=== PATIENT | male | born 1975 | race Caucasian/White ===

== ENCOUNTER → 2019-10-31 | Day surgery (SDC) | payer OTHER ==
[2019-10-26 14:17] LABS: ANION GAP 13.2 mmol/L (8-16); BLOOD UREA NITROGEN 16 mg/dL (7-26); BUN/CREATININE RATIO 14 (6-25); CALCIUM 9.6 mg/dL (8.4-10.2); CARBON DIOXIDE 27 mmol/L (22-29); CHLORIDE 102 mmol/L (98-107); CREATININE, SERUM 1.18 mg/dL (0.72-1.25); EST GLOMERULAR FILTRATION RATE > 60 ML/MIN (60-); GLUCOSE 107 mg/dL (74-118); POTASSIUM 4.2 mmol/L (3.5-5.1); SODIUM 138 mmol/L (136-145)
--- NOTE | 2019-10-26 14:46 | Diagnostic Imaging Report ---
Exam: KUB - 2 views Indication: Preoperative Comparison: None Findings: 5 mm calcific density just lateral to the left transverse process of L3 may represent a proximal left ureteral calculus. No additional radiographically apparent urinary calculi. Nonobstructive bowel gas pattern. No free air. No acute osseous injury. Impression: 5 mm calcific density lateral to the left transverse process of L3 may represent a proximal left ureteral calculus. Signed by: Danish Patrick MD on 10/26/2019 2:43 PM
[~2019-10-31] MED LIST: ATORVASTATIN CA40 MG PO; CEFTRIAXONE SOD 1 GM/NS 50 ML 50 ML IV ONE; DEXAMETHASONE SOD PHOS INJ 4 MG/ML VIAL ONE; FENTANYL CITRATE/PF 100MCG/2 ML INJ ONE; IOPAMIDOL 300MG/ML 50ML INFUS..BTL IV ONE; LIDOCAINE HCL 2% LOCAL INJ 5 ML SDV VIAL INJ ONE; METFORMIN HCL500 MG PO; MIDAZOLAM HCL 2 MG/2 ML VIAL ONE; ONDANSETRON HCL INJ 2MG/ML 2ML 2 MG/ML VIAL ONE; PHENTERMINE H37.5 MG PO; PROPOFOL IV EMULSION 10 MG/ML 20 ML VIAL ONE; SEVOFLURANE INHAL SOLN 250 ML PEN BTL ONE; ULTRAM 50MG50 MG PO
--- OUTSIDE RECORDS SUMMARY | 2019-10-31 05:34 | XMS REPORT ---
Author Author [facility] t [facility] Address [address] [place] [address] Phone Unavailable Care Team Providers Care Car Sales Consultant Name Role Phone Alyssa KIRBY, Adeel Piña PCP [phone] QI GALLO Attphys Unavailable Frandy RANGE EXAMINER-C, Otis Masters Attphys Adeel Shah MD Attphys [phone] Payers Payer Name Policy Type Policy Number Effective Date Expiration Date Buffy JASMINE [facility] [id number] xxxxxxxxxx 2017 00:00:00 Jayson Nunes Problems Condition Name Condition Details Condition Category Status Onset Date Resolution Date Last Treatment Date Treating Clinician Comments Source Syncope Syncope Disease Active 2019-02-19 00:00:00 Jayson Nunes Generalized abdominal pain Generalized abdominal pain Disease Active 2019-02-19 00:00:[address] Transaminitis Transaminitis Disease Active 2019-02-19 00:00:00 Jayson Nunes Non-intractable vomiting with nausea Non-intractable vomitin g with nausea Disease Active 2019-02-19 00:00:00 Jayson Nunes Chest pain Chest pain Disease Active 2018-08-13 00:00:00 Jayson Nunes Small bowel obstruction Small bowel obstruction Disease Active 2018-06-11 00:00:[address] Morbid obesity with BMI of 40.0-44.9, adult Morbid obe sity with BMI of 40.0- 44.9, adult Disease Active 2018-06-11 00:00:00 Jayson Nunes Gastroenteritis Gastroenteritis Disease Active 2018-06-09 00:00:00 Jayson Nunes Partial small bowel obstruction Partial small bowel obstruction Dis ease Active 2018-06-07 00:00:00 Jayson Nunes Allergies, Adverse Reactions, Alerts Allergy Name Allergy Type Status Severity Reaction(s) Onset Date Inacti ve Date Treating Clinician Comments Source No Known Allergies DA Active U 2019-06-27 00:00:00 [facility] Social History Social Habit Start Date Stop Date Quantity Comments Source History SDOH Alcohol Std Drinks Jayson Nunes History SDOH Alcohol Binge Jayson Nunes Sex Assigned At [facility] Alcohol intake 2019-02-19 00:00:00 2019-02-19 00:00:00 Current non-drinker of alcohol (finding) Jayson Nunes History SDOH Alcohol Frequency 2018-06-07 00:00:00 2018-06-07 00:00:0 0 1 Jayson Nunes Smoking Status Start Date Stop Date Source Never smoker Jayson Matute t Medications Ordered Medication Name Filled Medication Name Start Date Stop Da te Current Medication? Ordering Clinician Indication Dosage Frequency Signature (SIG) Comments Components Source pantoprazole (PROTONIX) 40 MG EC tablet 00:00:00 2019-03-25 04:59:00 No 40mg QD Take 1 tablet (40 mg total) by mouth daily for 30 days. Jayson Nunes metFORMIN (GLUCOPHAGE) 850 mg tablet 2019-02-21 17:45: 30 2019-02-21 00:00:00 No 850mg Q.5D Take 850 mg by mouth 2 (two) times a day with meals. Jayson Nunes simethicone (GAS-X ORAL) 2019-02-21 17:45:27 Yes 1{tbl} Q24H Take 1 tablet by mouth daily as needed. Jayson Nunes promethazine (PHENERGAN) 25 MG tablet 2019-02-20 02:37 :07 2019-02-19 00:00:00 No 25mg Q6H Take 25 mg by m outh every 6 (six) hours as needed for nausea or vomiting. Jayson Nunes ondansetron ODT (ZOFRAN-ODT) 4 MG disintegrating tablet 2019-02-20 02:37:01 2019-02-19 00:00:00 No 4mg Q6H Take 4 mg by mouth every 6 (six) hours as needed for nausea or vomiting. Jayson Rice ethodist ibuprofen (ADVIL,MOTRIN) 200 MG tablet 2019-02-11 0 02:36:42 2019-02-19 00:00:00 No 200mg Q6H Take 200 mg by mouth every 6 (six) hours as needed for mild pain. Jayson Nunes guaiFENesin (MUCINEX) 600 mg tablet extended release 12hr 2019-02-20 02:36:21 2019-02-19 00:00:00 No 600mg Q.5D Take 600 mg by mouth 2 (two) times a day as needed. Jayson Nunes fexofenadine (DAMION) 60 MG tablet 2019-02-20 02:36:1 4 2019-02-19 00:00:00 No 60mg Q24H Take 60 mg by mouth daily as needed. Jayson Nunes NON FORMULARY 2019-02-20 00:21:18 2019-02-19 00:00:00 No 1{application} Apply 1 application topically take as directed. Estrogen cream Jayson Nunes NON FORMULARY 2019-02-20 00:21:09 2019-02-19 00:00:00 No 1{application} Apply 1 application topically take as directed. Compounded testosterone cream Jayson Nunes diphenoxylate-atropine (LOMOTIL) 2.5-0.025 mg per tablet 2019-02-20 00:20:14 2019-02-19 00:00:00 No 1{tbl} Q.25D Take 1 tablet by mouth 4 (four) times a day as needed for diarrhea. Jayson alexandra acetaminophen (TYLENOL) 500 MG tablet 2019-02-20 00:19 :39 2019-02-19 00:00:00 No 500mg Q6H Take 500 mg by mouth every 6 (six) hours as needed for mild pain. Jayson Nunes cyclobenzaprine (FLEXERIL) 10 mg tablet 00:00:00 2019-02-19 00:00:00 No 10mg Q.5D Take 1 tablet (10 mg total) by mouth 2 (two) times a day as needed for muscle spasms for up to 30 doses. Jayson Nunes blood-glucose meter, drum-type (ACCU-CHEK COMPACT PLUS CARE) kit 2018-06-13 00:00:00 2019-02-19 00:00:00 No Test daily before all meals/snacks and once before bedtime. Jayson Nunes ACCU-CHEK COMPACT TEST strip 2018-06-13 00:00:00 2019-02-19 00:0 0:00 No Test daily before all meals/snacks and once before bedtime. Jayson Nunes lancing device with lancets (ACCU-CHEK MULTICLIX LANCET) kit 2018-06-13 00:00:00 2019-02-19 00:00:00 No Test daily before all meals/snacks and once before bedtime. Jayson Nuens alcohol swabs pads, medicated 2018-06-13 00:00:00 2019-02-19 00: 00:00 No Test daily before all meals/snacks and once before bed time. Jayson Nunes Immunizations Ordered Immunization Name Filled Immunization Name Date Status Comments Source FLUCELVAX QUAD PF 2019-02-19 00:00:00 Completed Jayson Nunes Vital Signs Vital Name Observation Time Observation Value Comments Source Systolic blood pressure 2019-02-21 16:10:51 116 mm[Hg] Jayson Nunes Diastolic blood pressure 2019-02-21 16:10:51 67 mm[Hg] Jayson Nunes Heart rate 2019-02-21 16:10:51 58 /min Jayson Nunes Body temperature 2019-02-21 16:10:51 36.39 Makeda Lois Nunes Respiratory rate 2019-02-21 16:10:51 16 /min Lois Nunes Oxygen saturation in Arterial blood by Pulse oximetry 02-21 16:10:51 100 /min Jayson Nunes Body height 2019-02-19 20:57:00 185.4 cm Jayson Nunes Body weight 2019-02-19 20:57:00 154.223 kg Jayson Nunes BMI 2019-02-19 20:57:00 44.86 kg/m2 Jayson Nunes Procedures Procedure Date / Time Performed Performing Clinician [facility] e COMPREHENSIVE METABOLIC PANEL 2019-02-21 10:30:00 Ricardo Shah [facility] COMPLETE BLD COUNT W/AUTO DIFF 2019-02-21 10:30:00 Jaky azael Александрmariorina Adeel Tyler [facility] HEPATIC FUNCTION PANEL 2019-02-21 10:30:00 Joanne Beck tracy [facility] ESTIMATED GFR 2019-02-21 10:30:00 Ayana Shah [facility] MRI CHOLANGIOGRAM W WO CONTRAST 2019-02-20 21:35:05 Asad Chisholm GODFREY-WEEMS VIRUS ANTIBODY TEST 2019-02-20 13:33:00 Deep Chisholm CYTOMEG IGG/IGM 2019-02-20 13:33:00 Deep Chisholm n Christian WHITNEY 2019-02-20 13:33:00 Deep Chisholm Christian ANTI SMOOTH MUSCLE AB SCREEN 2019-02-20 13:33:00 Tani Chisholm Christian TOTAL IRON BINDING CAPACITY 2019-02-20 13:33:00 Deep Chisholm Christian FERRITIN LEVEL 2019-02-20 13:33:00 Deep Chisholm Christian BILIRUBIN DIRECT 2019-02-20 13:33:00 Deep Chisholm on Christian CERULOPLASMIN LEVEL 2019-02-20 13:33:00 Deep Chisholm uston Christian ALPHA-1 ANTITRYPSIN LEVEL 2019-02-20 13:33:00 Deep Chisholm Christian ANTI SMOOTH MUSCLE AB TITER 2019-02-20 13:33:00 Deep Chisholm Christian TROPONIN 2019-02-20 09:59:00 Ayana Shah [facility] HC COMPLETE BLD COUNT W/AUTO DIFF 2019-02-20 09:59:00 Veronikayazan Ayana addison [facility] COMPREHENSIVE METABOLIC PANEL 2019-02-20 09:59:00 Ricardo hSah Christian ESTIMATED GFR 2019-02-20 09:59:00 Guerrero Wise [facility] HEMOGLOBIN A1C 2019-02-20 09:59:00 YerramadhAyana paizjeremy Nunes HEPATITIS ACUTE PANEL 2019-02-20 09:59:00 Guerrero Wise ECG 12-LEAD 2019-02-20 09:41:55 Ayana Shah Adeel Nunes ECG 12-LEAD 2019-02-20 05:31:56 Ayana Shah Jayson Nunes ECG ED PRELIMINARY INTERPRETATION 2019-02-20 05:28:54 David Wise TROPONIN 2019-02-20 04:13:00 Ayana Shahjeremy Nuens TROPONIN 2019-02-20 00:50:00 DennismarioAyana paiz Adeel Nunes URINE CULTURE 2019-02-20 00:03:00 Guerrero Wise URINALYSIS SCREEN AND MICROSCOPY, WITH REFLEX TO CULTURE 201 02-19-10 00:03:00 Guerrero Wise US GALLBLADDER 2019-02-19 23:37:[address] ABDOMEN PELVIS W CONTRAST 2019-02-19 23:12:[address] HEAD WO CONTRAST 2019-02-19 23:10:59 Guerrero Wise XR CHEST 2 VW 2019-02-19 21:46:39 Guerrero Wise ECG 12-LEAD 2019-02-19 21:29:40 Guerrero Wise HC COMPLETE BLD COUNT W/AUTO DIFF 2019-02-19 21:20:00 David Wise COMPREHENSIVE METABOLIC PANEL 2019-02-19 21:20:00 Guerrero Wise LIPASE LEVEL 2019-02-19 21:20:00 Guerrero Wise CREATINE KINASE, TOTAL (CPK) 2019-02-19 21:20:00 Guerrero Wise TROPONIN 2019-02-19 21:20:00 AlyssaAyana Adeel Nunes B NATRIURETIC PEPTIDE 2019-02-19 21:20:00 Guerrero Wise PROTHROMBIN TIME WITH INR 2019-02-19 21:20:00 Guerrero Wise Jean-Claude laguna Jayson Nunes PARTIAL THROMBOPLASTIN TIME (PTT) 2019-02-19 21:20:00 David Wise MAGNESIUM LEVEL 2019-02-19 21:20:00 Guerrero Wise ESTIMATED GFR 2019-02-19 21:20:00 Guerrero Wise Plan of Care Planned Activity Planned Date Details Comments Source Future Scheduled Test 2020-01-12 00:00:00 INFLUENZA VACCINE [code = INFLUENZA VACCINE] Jayson Nunes Results Test Description Test Time Test Comments Results Result Comments Source ABDOMEN-1VIEW (KUB) 2019-10-26 14:39:00 [place] [address] Patient Name: GUERRERO CABRERA MR #: [id number] : 1975 Age/Sex: 44/M Req #: [id number] Adm Physician: Ordered by: QI GALLO MD Report #: [id number] Location: OR Room/Bed: Procedure: [id number] DX/ABDOMEN-1VIEW (KUB) Exam Date: 10/26/19 Exam Time: 1350 REPORT STATUS: Signed Exam: KUB - 2 views Indication: Preoperative Comparison: None Findings: 5 mm calcific density just lateral to the left transverse process of L3 may represent a proximal left ureteral calculus. No additional radiographically apparent urinary calculi. Nonobstructive bowel gas pattern. No free air. No acute osseous injury. Impression: 5 mm calcific density lateral to the left transverse process of L3 may represent a proximal left ureteral calculus. Signed by: Jeni John MD on 10/26/2019 2:43 PM Dictated By: JENI JOHN MD 43 Transcribed By: BILL on 10/26/191442 COPY TO: QI GALLO MD GLUBED 2019-06-29 16:23:00 Test Item GLUBED (test code = GLUBED) 88 MG/DL 70-110 N Performed by certified bulk station operator at [facility] [id number] 13:47:00* Test Item Value Reference Range Interpretation Comments GLUBED (test code = GLUBED) 83 MG/DL 70-110 N Performed by certified bulk station operator at [facility] Anti smooth muscle Ab [id number] 19:16:52* Test Item Value Reference Range Interpretation Comments Anti smooth muscle Ab titer (test code = 327) 1:40 Not-Dete cted A Lab Interpretation (test code = 52210-7) Abnormal [facility] MethodistAnti smooth muscle Ab [id number] 19:13:15* Test Item Value Reference Range Interpretation Comments Anti smooth muscle Ab screen (test code = 262) Detected Not-Det ected A Lab Interpretation (test code = 38722-5) Abnormal [facility] MethodistCytomeg IgG/[id number] 08:27:32* Test Item Value Reference Range Interpretation Comments Cytomegalovirus Ab, IgM (test code = 9585097) Negative Negative Cytomegalovirus Ab, IgG (test code = 24010-5) Negative Negative Negative; No CMV IgG antibodies were detected. [facility] [id number] 20:21:30* Test Item Value Reference Range Interpretation Comments WHITNEY screen (test code = 550) Negative Negative [facility] MethodistComprehensive metabolic [id number] 13:37:43* Test Item Value Reference Range Interpretation Comments Sodium (test code = 2951-2) 142 135- 148 mEq/L Potassium (test code = 2823-3) 4.7 3.5- 5.0 mEq/L smaple slightly hemolyzed, verified new sample repeat 4.53 Chloride (test code = 5-0) 104 98- 112 mEq/L CO2 (test code = 2027-9) 29 24- 31 mEq/L Anion gap (test code = 32907-2) 9@ANIO 7- 15 mEq/L BUN (test code = 3094-0) 11 mg/dL 6-20 Creatinine (test code = 2160-0) 0.80 mg/dL 0.7-1.2 Glucose (test code = 2345-7) 114 mg/dL 65-99 H Calcium (test code = 26826-2) 9.4 mg/dL 8.3-10.2 Protein (test code = 2885-2) 6.8 g/dL 6.3-8.3 4.6-7.0 g/dL1 week 4.4-7.6 g/dL7 months-1year 5.1-7.3 g/dL1-2 years 5.6-7.5 g/dL>3 years 6.0-8.0 g/gO47-700 6.3-8.3 g/dL Albumin (test code = 1751-7) 3.7 g/dL 3.5-5 A/G ratio (test code = 1759-0) 1.2 0.7-3.8 Alkaline phosphatase (test code = 6768-6) 103 U/L 40-129 smaple slightly hemolyzed, verified new sample [id number] AST (test code = 1920-8) 78 U/L 10-50 H sma ple slightly hemolyzed, verified new sample repeat 69 ALT (test code = 1742-6) 257 U/L 5-50 H sma ple slightly hemolyzed, verified new sample Total bilirubin (test code = 1974-07) 0.9 mg/dL 0-1.2 Lab Interpretation (test code = 72814-4) Abnormal [facility] MethodistHepatic function [id number] 13:37:43* Test Item Value Reference Range Interpretation Comments Albumin (test code = 175-7) 3.7 g/dL 3.5-5 Total bilirubin (test code = 1974-07) 0.9 mg/dL 0-1.2 Bilirubin direct (test code = 1967-12) 0.2 mg/dL 0-0.3 Alkaline phosphatase (test code = 6768-6) 103 U/L 40-129 smaple slightly hemolyzed, verified new sample Protein (test code = 2885-2) 6.8 g/dL 6.3-8.3 4.6-7.0 g/dL1 week 4.4-7.6 g/dL7 months-1year 5.1-7.3 g/dL1-2 years 5.6-7.5 g/dL>3 years 6.0-8.0 g/wS76-340 6.3-8.3 g/dL ALT (test code = 1742-6) 257 U/L 5-50 H sma ple slightly hemolyzed, verified new sample icxvya754 AST (test code = 1920-8) 78 U/L 10-50 H sma ple slightly hemolyzed, verified new sample repeat 69 Lab Interpretation (test code = 34019-8) Abnormal [facility] MethodistEstimated [id number] 11:21:48* Test Item Value Reference Range Interpretation Comments Estimated GFR (test code = 5488) >=90 mL/min/1.73 m2 Catergory Units InterpretationG1 >=90 Normal or highG2 60-89 Mildly fhuapzxmxW8p 45-59 Mildly to moderately qzvevzumuH9v 30-44 Moderately to severely decreasedG4 15-29 Severely decreasedG5 <15 Kidney failureThe eGFR was calculated using the Chronic Kidney Disease Epidemiology Collaboration (CKD-EPI) equation. Interpretation is based on recommendations of the National Kidney Foundation-Kidney Disease Outcomes Quality Initiative (NKF-KDOQI) published in 2014. [facility] MethodistCBC with platelet and hkotawjmyibc2657-07-36 10:59:26* Test Item Value Reference Range Interpretation Comments WBC (test code = 16651-3) 5.01 4.50- 11.00 k/uL RBC (test code = 79495-1) 4.91 m/uL 4.4-6 HGB (test code = 718-7) 14.3 g/dL 14-18 HCT (test code = 4544-3) 46.2 % 41-51 MCV (test code = 787-2) 94.1 fL 82-100 MCH (test code = 785-6) 29.1 pg 27-34 MCHC (test code = 786-4) 31.0 g/dL 31-37 RDW - SD (test code = 10964-8) 46.2 fL 37-55 MPV (test code = 77316-2) 9.4 fL 8.8-13.2 Platelet count (test code = 13825-2) 209 150- 400 k/uL Nucleated RBC (test code = 27562-5) 0.00 /100 WBC Neutrophils (test code = 08469-6) 51.9 % 39-69 Lymphocytes (test code = 60502-2) 33.5 % 25-45 Monocytes (test code = 99171-8) 10.2 % 0-10 H Eosinophils (test code = 01218-5) 3.2 % 0-5 Basophils (test code = 25744-4) 0.8 % 0-1 Lab Interpretation (test code = 36729-4) Abnormal [facility] centerMRI CHOLANGIOGRAM W WO [id number] 22:37:28Hm Interface, Radiology Results 02/20/2019 5:40 PM CDTEXAMINATION: MRI CHOLANGIOGRAM W WO CONTRASTCLINICAL HISTORY: elevated liver tests biliary sludgeTECHNIQUE: Multiplanar multisequence MR images of the abdomen were obtaine d without and with IV Gadavist. MRCP images were obtained with 3-D reconstructi ons on the acquisition scanner under concurrent supervision.COMPARISON: CT abdo men and pelvis 02/19/2019FINDINGS:1.There is sludge in the gallbladder. No formed stones are visualized. There are no signs of cholecystitis.2.MRCP: No biliary st ricture, choledocholithiasis, or intrahepatic or extra hepatic biliary dilation. The common duct is 3.5 mm diameter. The pancreatic duct is normal.3.The liver, spleen, pancreas, and adrenals are normal.4.There are several sub-5 mm right yulisa al cysts, and there is a 2.2 cm simple left lower pole renal cyst. The kidneys a re otherwise normal without hydronephrosis.5.The stomach and imaged bowel loops are within normal limits.6.There is no lymphadenopathy or ascites.7.The portal, splenic, superior mesenteric veins are patent. The aorta is normal.8.No signific ant marrow abnormality is seen.IMPRESSION: 1.Gallbladder sludge without visible gallstone or bile duct stone or signs of cholecystitis.2.Benign renal cysts.[facility] [place][id number] MethodistEpstein-Weems virus antibody [id number] 20:33:25 * Test Item Value Reference Range Interpretation Comments EBV Ab to viral capsid Ag, IgG (test code = 18974-3) Positive N egative A EBV Ab to viral capsid Ag, IgM (test code = 43047-3) Negative N egative EBV Ab to nuclear Ag, IgG (test code = 7883-2) Positive Negativ e A EBV Ab to early (D) Ag, IgG (test code = 14295-8) Negative Nega tive Godfrey-Weems virus antibody interpretation (test code = 5466) SEE C OMMENT Infection Status: Results may suggest past EBV infection. Lab Interpretation (test code = 33948-6) Abnormal [facility] MethodistFerritin [id number] 19:48:05* Test Item Value Reference Range Interpretation Comments Ferritin level (test code = 2276-4) 351 ng/mL 30-400 [facility] MethodistCeruloplasmin [id number] 19:43:54* Test Item Value Reference Range Interpretation Comments Ceruloplasmin (test code = 2064-4) 24 mg/dL 15-30 [facility] MethodistAlpha-1 antitrypsin [id number] 19:43:43* Test Item Value Reference Range Interpretation Comments Alpha-1 antitrypsin (test code = 6771-0) 145 mg/dL 90-200 [facility] iron binding wywkaodt5249-05-13 13:57:28* Test Item Value Reference Range Interpretation Comments Iron level (test code = 2498-4) 190 ug/dL 59-158 H Iron binding capacity (test code = 2500-7) 292 ug/dL 200-400 % Saturation (test code = 2502-3) 65.1 % 20-40 H Lab Interpretation (test code = 25882-5) Abnormal [facility] MethodistBilirubin agaxgs1464-03-08 13:57:27* Test Item Value Reference Range Interpretation Comments Bilirubin direct (test code = 1968-7) 1.8 mg/dL 0-0.3 H Lab Interpretation (test code = 72507-4) Abnormal [place] MethodistHepatitis acute [id number] 12:02:24* Test Item Value Reference Range Interpretation Comments Hepatitis A IgM (test code = 11455-1) Nonreactive Non-reactive Hepatitis B core IgM (test code = 06402-9) Nonreactive Non-reactiv e Hepatitis B surface Ag (test code = 5195-3) Nonreactive Non-reacti ve Hepatitis C Ab (test code = 60861-0) Nonreactive Non-reactive [facility] MethodistECG 12 [id number] 11:59:20* Test Item Value Reference Range Interpretation Comments Ventricular rate (test code = 253) 73 Atrial rate (test code = 255) 73 [place] interval (test code = 266) 164 QRSD interval (test code = 260) 80 QT interval (test code = 264) 378 QTC interval (test code = 265) 416 P axis 1 (test code = 267) 43 QRS axis 1 (test code = 268) 15 T wave axis (test code = 270) 42 EKG impression (test code = 273) Normal sinus rhythm-N ormal ECG-In automated comparison with ECG of 20-FEB-2019 00:31,-No significant change was found- Tyler ZalblhhzaUixkbifw8162-22-66 11:25:17* Test Item Value Reference Range Interpretation Comments Troponin (test code = 98976-5) <0.006 0-0.04 [facility] changed methodology effective: 10/17/2018 at 10:00 amThe new method has a 99th percentile cutoff of 0.040 ng/mL Tyler MethodistHemoglobin [id number] 11:01:56* Test Item Value Reference Range Interpretation Comments Hemoglobin A1C (test code = 20226-8) 6.1 % 4-5.6 H HbA1c cutoffs for diagnosing diabetes:4.0% - 5.6% = normal5.7% - 6.4% = increased risk for diabetes (prediabetes) >=6.5% = diabetes Goals for glycemic control (ADA 2016)< 7.0% Target for non adults with diabetes. More or less stringent targets may be appropriate for individual patients. <7.5% Target for Children and adolescents with type 1 diabetes. Lab Interpretation (test code = 82225-8) Abnormal [place] [place] [facility] Preliminary Interpretation - Not an [id number] 05:28:54Nestor Arita MD 02/21/2019 9:44 [facility] [place] Preliminary Interpretation - Not an OrderPerformed by: Guerrero Wise NP-CAuthorized by: Guerrero Wise NP-C ECG reviewed by ED Physician in the absence of a drying machine tender: yes Interpretation: Interpretation: normal Rate: ECG rate: 72 ECG rate assessment: normal Rhythm: Rhythm: sinus rhythm Ectopy: Ectopy: none QRS: QRS axis: Normal QRS intervals: NormalST segments: ST segments: NormalT waves: T waves: normal Jayson NunesUrine culture 2019-02-20 00:23:40* Test Item Value Reference Range Interpretation Comments Urine culture (test code = 9955243) SEE COMMENT Bacteriuria screen negative. Jayson MethodistUrinalysis screen and microscopy, with reflex to culture 2019-02-20 00:23:38* Test Item Value Reference Range Interpretation Comments Specimen site (test code = 0572497) Clean catch Color, UA (test code = 5778-6) Janina Appearance, UA (test code = 5767-9) Clear Specific gravity, UA (test code = 5811-5) >1.060 1.001-1.035 H pH, UA (test code = 5803-2) 6.0 5.0-8.5 Protein, UA (test code = 30646-6) Negative Negative Glucose, UA (test code = 97197-4) Negative Negative Ketones, UA (test code = 2514-8) Negative Negative Bilirubin, UA (test code = 5770-3) Negative Negative Blood, UA (test code = 5794-3) Negative Negative Nitrite, UA (test code = 5802-4) Negative Negative Urobilinogen, UA (test code = 69484-7) 2.0 <2.0 A Leukocyte esterase, UA (test code = 5799-2) Negative Negative Epithelial cells, UA (test code = 5787-7) Many Few /HPF WBC, UA (test code = 5821-4) 0-5 0- 1 /HPF RBC, UA (test code = 76131-6) 0-5 0- 5 /HPF Bacteria, UA (test code = 51107-4) Few None seen Yeast, UA (test code = 57950-5) None seen Yeast with pseudohyphae, UA (test code = 71523-8) None seen Lab Interpretation (test code = 84898-0) Abnormal Jayson Landers Lebstiiozvt5588-39-27 23:39:27Hm Interface, Radiology Results 02/19/2019 6:42 PM CDTEXAMINATION: US GALLBLADDERCLINICAL HISTORY: 44 years Male upper abdominal painCOMPARISON: N one.FINDINGS:Gallbladder: Minimal intermediate echoes within the gallbladder lik lali reflects sludge. No calculi. The gallbladder wall is not thickened and there is no pericholecystic fluid.CBD: 5 mm, within normal limits.Liver: The liver is diffusely increased in echogenicity.Portal vein: The portal vein demonstrates normal hepatopetal flow. The portal vein measures 1.1 cm.IMPRESSION:1.Gallbladde r sludge. No sonographic evidence of cholelithiasis or cholecystitis.2.Hepatic s teatosis.[facility]-[id number] MethodistCT Head Wo [id number] 23:16:44Hm Interface, Radiology Results Incoming 02/19/2019 6:19 PM CDTEXAMINATION: CT HEAD WO CONTRASTCLINICAL HISTORY: syncopeCOMPARISON: None.TECHNIQUE: Noncon trast head CT performed using radiation dose reduction techniques. Technical fa ctors are evaluated and adjusted to ensure appropriate moderation of exposure. Automated dose management technology is applied to adjust radiation exposure whi le achieving a diagnostic quality image. FINDINGS:No acute intra or extra-axial hemorrhage identified. The miller-white matter differentiation is preserved. The basal ganglia, thalami, midbrain, arya and cervicomedullary junction are unremar kable. No mass, mass effect, or midline shift is seen. Ventricles and sulci are normal in appearance for patient's age. Basal cisterns are patent. Calvarium is intact.The orbital contents are symmetric and normal in appearance. The visuali zed paranasal sinuses are unremarkable. The mastoid air cells and middle ear cav ities are clear. Scalp soft tissues are unremarkable.IMPRESSION:No acute intracr anial abnormality identified.[facility]ITALW-[id number] MethodistCT Abdomen Pelvis W Qxtlznis6268-86-53 23:16:21Hm Interface, Radiology Results 02/19/2019 6:19 PM CDTEXAMINATION: CT ABDOMEN PELVIS W CONTRASTCLINICAL HISTORY: generalized abdominal tendernessCOMPARISON: August 13, 2018TECHNIQUE: Multiple axial CT images of the Abdomen and pelvis were obtained With IV contrast . Sagittal and coronal reconstructions were done. CT imaging was performed with iterative reconstruction technique and/or automated exposure control to reduce radiation dose.FINDINGS:HEPATOBILIARY: No focal hepatic lesions. No biliary ductal dilation..GALLBLADDER: Normal.SPLEEN: No splenomegaly.PANCREAS: No focal masses or ductal dilation.ADRENALS: No adrenal nodules.KIDNEYS: Bilateral calyceal kidney stones measuring up to 4 mm nonobstructing. No hydronephrosis or renal mass. Stable left renal cyst.PERITONEUM/RETROPERITONEUM: No free air or fluid. No lymphadenopathy.ABDOMINAL AORTA/IVC: No aneurysm or dissection.GI TRACT: Visualized portions of the bowel demonstrate no distention or wall thickening. There are no signs of appendicitis. No signs of diverticulitis.PELVIC ORGANS/BLADDER: Unremarkable.BONES AND SOFT TISSUES: No acute abnormality of the bones. Fat-containing umbilical hernia stable.VISU ALIZED LOWER CHEST: No acute abnormality.IMPRESSION:No acute abnormality.STJO-2U [id number] [facility] [id number] 22:03:37* Test Item Value Reference Range Interpretation Comments BNP (test code = 96404-8) 18 pg/mL 0-100 [facility] [id number] 21:48:50* Test Item Value Reference Range Interpretation Comments Lipase (test code = 3040-3) 25 U/L 13-60 [facility] [id number] 21:48:50* Test Item Value Reference Range Interpretation Comments Magnesium (test code = 79709-7) 2.1 mg/dL 1.6-2.6 [facility], total (CPK)2019-02-19 21:48:48* Test Item Value Reference Range Interpretation Comments Creatine kinase (test code = 2157-6) 129 U/L 39-308 [facility] Chest 2 [id number] 21:48:17 Interface, Radiology Results - 02/19/2019 4:51 PM CDTEXAMINATION: XR CHEST 2 VWCLINICAL HISTORY: dizzyCOMPARISON: 08/12/2018IMPRESSION:1.Lungs are mildly hypoinflated but otherwise clear.2.Mediastinal contours and cardiac silhouette are unremarkable.3.No acute osseous abnormality.[id number] [facility] Prothrombin time with [id number] 21:43:21* Test Item Value Reference Range Interpretation Comments Prothrombin time (test code = 5902-2) 12.1 11.5- 14.5 sec INR (test code = 42872-1) 0.9 Th e International Normalized Ratio (INR) is a therapeutic monitoring tool for patients who are stable on oral anticoagulant therapy. An INR of 2.0-3.0 is suggested for deep vein thrombosis/pulmonary embolism. Jayson NunesPartial thromboplastin time, [id number] 21:43:21* Test Item Value Reference Range Interpretation Comments PTT (test code = 01962-2) 25.8 23.0- 36.0 sec PTT therapeutic range for unfractionated heparin is61.0-112.0 seconds which corresponds to Anti-Xa0.3-0.7 U/ml. Jayson Nunes
--- OUTSIDE RECORDS SUMMARY | 2019-10-31 05:34 | XMS REPORT | Clinical Summary ---
Author Author [facility] Organization [facility] Address Unknown Phone Unavailable Care Team Providers Care Textile Worker Name Role Phone Ayana Shah MD PCP [phone] Allergies No Known Allergies Medications End Date Status Medication Sig Dispensed Refills Start Date Active simethicone (GAS-X ORAL) Take 1 tablet 0 by mouth daily as needed. 02/19/2019 Discontinued promethazine (PHENERGAN) Take 25 mg by 0 25 MG tablet mouth every 6 (six) hours as needed for nausea or vomiting. 02/19/2019 Discontinued (Med List Clean up) diphenoxylate-atropine Take 1 tablet 0 (LOMOTIL) 2.5-0.025 mg by mouth 4 per tablet (four) times a day as needed for diarrhea. 02/19/2019 Discontinued ondansetron ODT Take 4 mg by 0 (ZOFRAN-ODT) 4 MG mouth every 6 disintegrating tablet (six) hours as needed for nausea or vomiting. 02/19/2019 Discontinued fexofenadine (DAMION) 60 Take 60 mg by 0 MG tablet mouth daily as needed. 02/19/2019 Discontinued guaiFENesin (MUCINEX) 600 Take 600 mg 0 mg tablet extended by mouth 2 release 12hr (two) times a day as needed. 02/19/2019 Discontinued ibuprofen (ADVIL,MOTRIN) Take 200 mg 0 200 MG tablet by mouth every 6 (six) hours as needed for mild pain. 02/19/2019 Discontinued (Med List Clean up) acetaminophen (TYLENOL) Take 500 mg 0 500 MG tablet by mouth every 6 (six) hours as needed for mild pain. 02/19/2019 Discontinued (Med List Clean up) NON FORMULARY Apply 1 0 application topically take as directed. Compounded testosterone cream 02/19/2019 Discontinued (Med List Clean up) NON FORMULARY Apply 1 0 application topically take as directed. Estrogen cream 02/19/2019 Discontinued (Med List Clean up) blood-glucose meter, Test daily 1 kit 0 06/13 drum-type (ACCU-CHEK before all 9 COMPACT PLUS CARE) kit meals/snacks and once before bedtime. 02/19/2019 Discontinued (Med List Clean up) ACCU-CHEK COMPACT TEST Test daily 100 strip 0 strip before all 9 meals/snacks and once before bedtime. 02/19/2019 Discontinued (Med List Clean up) lancing device with Test daily 100 each 0 lancets (ACCU-CHEK before all 9 MULTICLIX LANCET) kit meals/snacks and once before bedtime. 02/19/2019 Discontinued (Med List Clean up) alcohol swabs pads, Test daily 100 each 0 medicated before all 9 meals/snacks and once before bedtime. 02/19/2019 Discontinued (Med List Clean up) cyclobenzaprine Take 1 tablet 30 tablet 0 08/15/19 1 (FLEXERIL) 10 mg tablet (10 mg total) 9 by mouth 2 (two) times a day as needed for muscle spasms for up to 30 doses. 02/21/2019 Discontinued (Stop Taking at Discharge) metFORMIN (GLUCOPHAGE) Take 850 mg 0 850 mg tablet by mouth 2 (two) times a day with meals. 03/24/2019 pantoprazole (PROTONIX) Take 1 tablet 30 tablet 0 40 MG EC tablet (40 mg total) 9 by mouth daily for 30 days. Active Problems Problem Noted Date Syncope 02/19/2019 Generalized abdominal pain 02/19/2019 Transaminitis 02/19/2019 Non-intractable vomiting with nausea 02/19/2019 Chest pain 08/13/2018 Small bowel obstruction 06/11/2018 Morbid obesity with BMI of 40.0-44.9, adult 06/11/20 18 Gastroenteritis 06/09/2018 Partial small bowel obstruction 06/07/2018 Encounters Care Team Description Date Type Specialty Guerrero Wise, FINANCIAL MANAGER-C Ayana Shah MD Syncope, unspecified syncope type (Prima ry Dx); Generalized abdominal pain; Non-intractable vomiting with nausea, unspecified vomiting type; Transaminitis; Hepatic steatosis 02/19/2019 [facility] General Internal Me dicine - Encounter 02/21/2019 02/19/2019 Travel after 10/30/2018 Immunizations Name Administration Dates Next Due FLUCELVAX QUAD PF 02/19/2019 Social History Date Tobacco Use Types Packs/Day Years Used Never Smoker Smokeless Tobacco: Never Used Drinks/Week oz/Week Comments Alcohol Use No Alcohol Habits Answer Date Recorded How often do you have a drink containing alcohol? Never 06/07/2018 How many drinks containing alcohol do you have on No t asked a typical day when you are drinking? How often do you have six or more drinks on one Not asked occasion? Sex Assigned at Date Recorded Male 07/31/2018 8:55 AM [employer] Job Start Date Occupation Not on file Not on file Not on file Travel End Travel History Travel Start No recent travel history available. Last Filed Vital Signs Reading Time Taken Comments Vital Sign 116/67 02/21/2019 11:10 AM CDT Blood Pressure 58 02/21/2019 11:10 AM CDT Pulse 36.4 C (97.5 F) 02/21/2019 11:10 AM CDT Temperature 16 02/21/2019 11:10 AM CDT Respiratory Rate 100% 02/21/2019 11:10 AM CDT Oxygen Saturation - - Inhaled Oxygen Concentration 154 kg (340 lb) 02/19/2019 3:57 PM CDT Weight 185.4 cm (6' 1") 02/19/2019 3:57 PM CDT Height 44.86 02/19/2019 3:57 PM CDT Body Mass Index Plan of Treatment Health Maintenance Due Date Last Done Comments INFLUENZA VACCINE 01/12/2020 02/19/2019 Procedures Comments Procedure Name Priority Date/Time Associated Diag nosis ESTIMATED GFR Routine 02/21/2019 5:30 AM CDT HEPATIC FUNCTION PANEL Routine 02/21/2019 5:30 AM CDT HC COMPLETE BLD COUNT Routine 02/21/2019 W/AUTO DIFF 5:30 AM CDT COMPREHENSIVE METABOLIC Routine 02/21/2019 PANEL 5:30 AM CDT MRI CHOLANGIOGRAM W WO Routine 02/20/2019 CONTRAST 4:35 PM CDT ANTI SMOOTH MUSCLE AB Routine 02/20/2019 TITER 8:33 AM CDT ALPHA-1 ANTITRYPSIN LEVEL Routine 02/20/2019 8:33 AM CDT CERULOPLASMIN LEVEL Routine 02/20/2019 8:33 AM CDT BILIRUBIN DIRECT Routine 02/20/2019 8:33 AM CDT FERRITIN LEVEL Routine 02/20/2019 8:33 AM CDT TOTAL IRON BINDING Routine 02/20/2019 CAPACITY 8:33 AM CDT ANTI SMOOTH MUSCLE AB Routine 02/20/2019 SCREEN 8:33 AM CDT WHITNEY Routine 02/20/2019 8:33 AM CDT CYTOMEG IGG/IGM Routine 02/20/2019 8:33 AM CDT JAYCOB-WEEMS VIRUS Routine 02/20/2019 ANTIBODY TEST 8:33 AM CDT HEPATITIS ACUTE PANEL Routine 02/20/2019 4:59 AM CDT HEMOGLOBIN A1C Routine 02/20/2019 4:59 AM CDT ESTIMATED GFR Routine 02/20/2019 4:59 AM CDT COMPREHENSIVE METABOLIC Routine 02/20/2019 PANEL 4:59 AM CDT HC COMPLETE BLD COUNT Routine 02/20/2019 W/AUTO DIFF 4:59 AM CDT TROPONIN Timed 02/20/2019 4:59 AM CDT ECG 12-LEAD Routine 02/20/2019 4:41 AM CDT ECG 12-LEAD Routine 02/20/2019 12:31 AM CDT ECG ED PRELIMINARY Routine 02/20/2019 INTERPRETATION 12:28 AM CDT TROPONIN Timed 02/19/2019 11:13 PM CDT TROPONIN Timed 02/19/2019 7:50 PM CDT URINALYSIS SCREEN AND Routine 02/19/2019 MICROSCOPY, WITH REFLEX 7:03 PM CDT TO CULTURE URINE CULTURE Routine 02/19/2019 7:03 PM CDT US GALLBLADDER STAT 02/19/2019 6:[address] ABDOMEN PELVIS W STAT 02/19/2019 CONTRAST 6:[address] HEAD WO CONTRAST STAT 02/19/2019 6:10 PM CDT XR CHEST 2 VW STAT 02/19/2019 4:46 PM CDT ECG 12-LEAD STAT 02/19/2019 4:29 PM CDT ESTIMATED GFR STAT 02/19/2019 4:20 PM CDT MAGNESIUM LEVEL STAT 02/19/2019 4:20 PM CDT PARTIAL THROMBOPLASTIN STAT 02/19/2019 TIME (PTT) 4:20 PM CDT PROTHROMBIN TIME WITH INR STAT 02/19/2019 4:20 PM CDT B NATRIURETIC PEPTIDE STAT 02/19/2019 4:20 PM CDT TROPONIN STAT 02/19/2019 4:20 PM CDT CREATINE KINASE, TOTAL STAT 02/19/2019 (CPK) 4:20 PM CDT LIPASE LEVEL STAT 02/19/2019 4:20 PM CDT COMPREHENSIVE METABOLIC STAT 02/19/2019 PANEL 4:20 PM CDT HC COMPLETE BLD COUNT STAT 02/19/2019 W/AUTO DIFF 4:20 PM CDT after 10/30/2018 Results * Estimated GFR (02/21/2019 5:30 AM CDT) Only the most recent of 3 results within the time period is included. Estimated GFR >=90 mL/min/1.73 m2 Y[facility]ANK Comment: [facility] Interpretation G1 >=90 Normal or high G2 60-89 Mildly decreased G3a 45-59 Mildly to moderately decreased G3b 30-44 Moderately to severely decreased G4 15-29 Severely decreased G5 <15 Kidney failure The eGFR was calculated using the Chronic Kidney Disease Epidemiology Collaboration (CKD-EPI) equation. Interpretation is based on recommendations of the National Kidney Foundation-Kidney Disease Outcomes Quality Initiative (NKF-KDOQI) published in 2014. Specimen Plasma specimen Performing Organization Address City/State/[facility] [place] [address] [place], [place] [address] PATHOLOGY AND GENOMIC MEDICINE [facility] [address] [place] [address] [facility] * CBC with platelet and differential (02/21/2019 5:30 AM CDT) Only the most recent of 3 results within the time period is included. Pathologist [facility] WBC 5.01 4.50 - 11.00 k/uL [facility] RBC 4.91 4.40 - 6.00 m/uL [facility] HGB 14.3 14.0 - 18.0 g/dL [facility] HCT 46.2 41.0 - 51.0 % [facility] MCV 94.1 82.0 - 100.0 fL [facility] MCH 29.1 27.0 - 34.0 pg [facility] MCHC 31.0 31.0 - 37.0 g/dL [facility] RDW - SD 46.2 37.0 - 55.0 fL [facility] MPV 9.4 8.8 - 13.2 fL [facility] Platelet count 209 150 - 400 k/uL [facility] Nucleated RBC 0.00 /100 WBC [facility] Neutrophils 51.9 39.0 - 69.0 % [facility] Lymphocytes 33.5 25.0 - 45.0 % [facility] Monocytes 10.2 (H) 0.0 - 10.0 % [facility] Eosinophils 3.2 0.0 - 5.0 % [facility] Basophils 0.8 0.0 - 1.0 % [facility] Specimen Blood Performing Organization Address City/[facility] Ph one Number [facility] [place] [address] [place], [place] [address] PATHOLOGY AND GENOMIC MEDICINE [facility] [address] * Hepatic function panel (02/21/2019 5:30 AM CDT) Albumin 3.7 3.5 - 5.0 g/dL [facility] Total bilirubin 0.9 0.0 - 1.2 mg/dL [facility] Bilirubin 0.2 0.0 - 0.3 mg/dL [facility] Alkaline 103Comment: smaple slightly 40 - 129 U/L [facility] phosphatase hemolyzed, verified new sample [facility] Protein 6.8 6.3 - 8.3 g/dL [facility] Comment: [facility] 4.6-7.0 g/dL 1 week 4.4-7.6 g/dL 7 months-1year 5.1-7.3 g/dL 1-2 years 5.6-7.5 g/dL >3 years 6.0-8.0 g/dL 18-150 6.3-8.3 g/dL ALT 257 (H)Comment: smaple 5 - 50 U/L [facility] slightly hemolyzed, verified [facility] new sample [facility] AST 78 (H)Comment: smaple slightly 10 - 50 U/L [facility] hemolyzed, verified new sample MANDAEN CLEAR repeat 69 [facility] Specimen Plasma specimen Performing Organization Address City/State/[place] Ph one Number [facility] [place] [address] [place], [place] [address] PATHOLOGY AND GENOMIC MEDICINE [facility] [address] [address] * Comprehensive metabolic panel (02/21/2019 5:30 AM CDT) Only the most recent of 3 results within the time period is included. Sodium 142 135 - 148 mEq/L [facility] Potassium 4.7Comment: smaple slightly 3.5 - 5.0 mEq/L H [facility] hemolyzed, verified new sample MANDAEN CLEAR repeat 4.53 [facility] Chloride 104 98 - 112 mEq/L [facility] CO2 29 24 - 31 mEq/L [facility] Anion gap 9@ANIO 7 - 15 mEq/L [facility] BUN 11 6 - 20 mg/dL [facility] Creatinine 0.80 0.70 - 1.20 mg/dL [facility] Glucose 114 (H) 65 - 99 mg/dL [facility] Calcium 9.4 8.3 - 10.2 mg/dL [facility] Protein 6.8 6.3 - 8.3 g/dL [facility] Comment: [facility] 4.6-7.0 g/dL 1 week 4.4-7.6 g/dL 7 months-1year 5.1-7.3 g/dL 1-2 years 5.6-7.5 g/dL >3 years 6.0-8.0 g/dL 18-150 6.3-8.3 g/dL Albumin 3.7 3.5 - 5.0 g/dL [facility] A/G ratio 1.2 0.7 - 3.8 [facility] Alkaline 103Comment: smaple slightly 40 - 129 U/L [facility] hemolyzed, verified new sample METHOD IST CLEAR [id number] [facility] AST 78 (H)Comment: smaple slightly 10 - 50 U/L [facility] hemolyzed, verified new sample MANDAEN CLEAR repeat 69 [facility] ALT 257 (H)Comment: smaple 5 - 50 U/L [facility] slightly hemolyzed, verified MANDAEN CLEAR new sample [id number] [facility] Total bilirubin 0.9 0.0 - 1.2 mg/dL [facility] Specimen Plasma specimen Performing Organization Address City/State/[employer] [place] [address] [place], [place] [address] PATHOLOGY AND GENOMIC MEDICINE [facility] [address] [place] [address] [facility] * MRI CHOLANGIOGRAM W WO CONTRAST (02/20/2019 4:35 PM CDT) Specimen Narrative Performed At EXAMINATION: MRI CHOLANGIOGRAM W WO CONTRAST RA DIANT CLINICAL HISTORY: elevated liver test s biliary sludge TECHNIQUE: Multiplanar multisequence MR images of the abdomen were obtained without and with IV Gadavist. MRCP im ages were obtained with 3-D reconstructions on the acquisition scan ner under concurrent supervision. COMPARISON: CT abdomen and pelvis 02/19 FINDINGS: 1.There is sludge in the gallbladder. N o formed stones are visualized. There are no signs of cholecystitis. 2.MRCP: No biliary stricture, choledoch olithiasis, or intrahepatic or extra hepatic biliary dilation. The common du ct is 3.5 mm diameter. The pancreatic duct is normal. 3.The liver, spleen, pancreas, and adre nals are normal. 4.There are several sub-5 mm right obdulio l cysts, and there is a 2.2 cm simple left lower pole renal cyst. The kidneys are otherwise normal without hydronephrosis. 5.The stomach and imaged bowel loops ar e within normal limits. 6.There is no lymphadenopathy or ascite s. 7.The portal, splenic, superior mesente lisa veins are patent. The aorta is normal. 8.No significant marrow abnormality is seen. IMPRESSION: 1.Gallbladder sludge without visible ga llstone or bile duct stone or signs of cholecystitis. 2.Benign renal cysts. [id number] Procedure Note Interface, Radiology Results Incoming - 02/20/2019 5:40 PM CDT EXAMINATION: MRI CHOLANGIOGRAM W WO CONTRAST CLINICAL HISTORY: elevated liver tests biliary sludge TECHNIQUE: Multiplanar multisequence MR images of the abdomen were obtained without and with IV Gadavist. MRCP images were obtained with 3-D reconstructions on the acquisition scanner under concurrent supervision. COMPARISON: CT abdomen and pelvis 02/19/2019 FINDINGS: 1.There is sludge in the gallbladder. No formed stones are visualized. There are no signs of cholecystitis. 2.MRCP: No biliary stricture, choledocho lithiasis, or intrahepatic or extra hepatic biliary dilation. The common duct is 3.5 mm diameter. The pancreatic duct is normal. 3.The liver, spleen, pancreas, and adren als are normal. 4.There are several sub-5 mm right renal cysts, and there is a 2.2 cm simple left lower pole renal cyst. The kidneys are otherwise normal without hydronephrosis. 5.The stomach and imaged bowel loops are within normal limits. 6.There is no lymphadenopathy or ascites . 7.The portal, splenic, superior mesenter ic veins are patent. The aorta is normal. 8.No significant marrow abnormality is s een. IMPRESSION: 1.Gallbladder sludge without visible gal lstone or bile duct stone or signs of cholecystitis. 2.Benign renal cysts. [id number] Performing Organization Address [facility] [place] [address] * Jaycob-Weems virus antibody test (02/20/2019 8:33 AM CDT) EBV Ab to viral Positive (A) Negative [facility] capsid Ag, IgG [facility] EBV Ab to viral Negative Negative [facility] capsid Ag, IgM [facility] EBV Ab to Positive (A) Negative [facility] nuclear Ag, IgG [facility] EBV Ab to early Negative Negative [facility] (D) Ag, IgG [facility] Jaycob-Weems SEE COMMENTComment: Infection [facility] virus antibody Status: Results may suggest MANDAEN interpretation past EBV infection. HOSPITAL Specimen Serum Performing Organization Address [facility] one Number [facility] DEPARTMENT OF [address] [place] [address] PATHOLOGY AND GENOMIC MEDICINE [address] * Anti smooth muscle Ab titer (02/20/2019 8:33 AM CDT) Pathologist [facility] Anti smooth 1:40 (A) Not-Detected YAPHANK muscle Ab titer [facility] Specimen Blood Performing Organization Address [facility] one Number [facility] DEPARTMENT OF [address] [place] [address] PATHOLOGY AND GENOMIC MEDICINE [address] * Anti smooth muscle Ab screen (02/20/2019 8:33 AM CDT) Anti smooth Detected (A) Not-Detected TYLRE muscle Ab MANDAEN screen HOSPITAL Specimen Blood Performing Organization Address [facility] one Number [facility] DEPARTMENT OF [address] [place] [address] PATHOLOGY AND GENOMIC MEDICINE [address] * Total iron binding capacity (02/20/2019 8:33 AM CDT) Iron level 190 (H) 59 - 158 ug/dL [facility] Iron binding 292 200 - 400 ug/dL [facility] % Saturation 65.1 (H) 20.0 - 40.0 % [facility] Specimen Plasma specimen Performing Organization Address City/[facility] Ph one Number [facility] [place] [address] [place], [place] [address] PATHOLOGY AND GENOMIC MEDICINE [facility] [address] [place] [address] [facility] * Cytomeg IgG/IgM (02/20/2019 8:33 AM CDT) Cytomegalovirus Negative Negative [facility] Ab, IgM [facility] Cytomegalovirus NegativeComment: Negative; No Negative [facility] Ab, IgG CMV IgG antibodies were MANDAEN detected. HOSPITAL Specimen Serum Performing Organization Address [facility] Ph one Number [facility] DEPARTMENT OF [address] [place] [address] PATHOLOGY AND [facility] MEDICINE [address] * Alpha-1 antitrypsin level (02/20/2019 8:33 AM CDT) Alpha-1 145 90 - 200 mg/dL [facility] Specimen Plasma specimen Performing Organization Address [facility] Ph one Number [facility] DEPARTMENT OF [address] [place], [place] [id number] PATHOLOGY AND [facility] MEDICINE [address] * Ceruloplasmin level (02/20/2019 8:33 AM CDT) Ceruloplasmin 24 15 - 30 mg/dL [facility] Specimen Plasma specimen Performing Organization Address City/[facility] Ph one Number [facility] DEPARTMENT OF [address] [place], [place] [id number] PATHOLOGY AND GENOMIC MEDICINE [address] * WHITNEY (02/20/2019 8:33 AM CDT) WHITNEY screen Negative Negative [facility] Specimen Blood Performing Organization Address City/[facility] Ph one Number [facility] DEPARTMENT OF [address] [place] [id number] PATHOLOGY AND GENOMIC MEDICINE [address] * Ferritin level (02/20/2019 8:33 AM CDT) Pathologist [facility] Ferritin level 351 30 - 400 ng/mL [facility] Specimen Plasma specimen Performing Organization Address City/[facility] Ph one Number [facility] DEPARTMENT OF [address] [place] [address] PATHOLOGY AND GENOMIC MEDICINE [address] [address] [facility] * Bilirubin direct (02/20/2019 8:33 AM CDT) Pathologist [facility] Bilirubin 1.8 (H) 0.0 - 0.3 mg/dL [facility] direct [facility] Specimen Plasma specimen Performing Organization Address City/[facility] one Number [facility] DEPARTMENT OF [address] [place] [address] [place] [address] PATHOLOGY AND GENOMIC MEDICINE [address] * Troponin (02/20/2019 4:59 AM CDT) Only the most recent of 4 results within the time period is included. [facility] Troponin <0.006 0.000 - 0.040 ng/mL [facility] Comment: MANDAEN [facility] changed methodology effective: 10/17/2018 at 10:00 am The new method has a 99th percentile cutoff of 0.040 ng/mL Specimen Plasma specimen Performing Organization Address [facility] one Number [facility] DEPARTMENT OF [address] [place] [address] [place] [address] PATHOLOGY AND GENOMIC MEDICINE [address] * Hepatitis acute panel (02/20/2019 4:59 AM CDT) Pathologist [facility] Hepatitis A IgM Nonreactive Non-reactive [facility] Hepatitis B Nonreactive Non-reactive [facility] core IgM [facility] Hepatitis B Nonreactive Non-reactive [facility] surface Ag [facility] Hepatitis C Ab Nonreactive Non-reactive [facility] Specimen Serum Performing Organization Address [facility] one Number [facility] DEPARTMENT OF [address] [place] [address] [place] [address] PATHOLOGY AND GENOMIC MEDICINE [address] * Hemoglobin A1c (02/20/2019 4:59 AM CDT) Hemoglobin A1C 6.1 (H) 4.0 - 5.6 % Y[facility]ANK Comment: [facility] SINGH HbA1c cutoffs for diagnosing [facility] diabetes: 4.0% - 5.6% = normal 5.7% - 6.4% = increased risk for diabetes (prediabetes) >=6.5% = diabetes Goals for glycemic control (ADA 2016) < 7.0% Target for non adults with diabetes. More or less stringent targets may be appropriate for individual patients. <7.5% Target for Children and adolescents with type 1 diabetes. Specimen Blood Performing Organization Address [facility] [place] [address] [place], [place] [address] PATHOLOGY AND GENOMIC MEDICINE YAPHANK CRU[place] SING[place] [address] [place] [address] [facility] * ECG 12 lead (02/20/2019 4:41 AM CDT) Only the most recent of 3 results within the time period is included. Ventricular 73 [facility] rate Atrial rate 73 [facility] ME interval 164 [facility] QRSD interval 80 [facility] QT interval 378 [facility] QTC interval 416 [facility] P axis 1 43 [facility] QRS axis 1 15 [facility] T wave axis 42 [facility] EKG impression Normal sinus rhythm-Normal [facility] MUSE ECG-In automated comparison with ECG of 20-FEB-2019 00:31,-No significant change was found- Specimen Narrative Performed At This result has an attachment that is n ot available. Performing Organization Address [facility] one Number [facility] MUSE [address] [place] [address] * ECG ED Preliminary Interpretation - Not an Order (02/20/2019 12:28 AM CDT) Narrative Performed At Nestor Arita MD 02/11 9:44 PM ECG ED Preliminary Interpretation - Not an Order Performed by: Guerrero Wise NP-C Authorized by: Guerrero Wise NP- C ECG reviewed by ED Physician in the abs ence of a crankshaft balancer: yes Interpretation: Interpretation: normal Rate: ECG rate: 72 ECG rate assessment: normal Rhythm: Rhythm: sinus rhythm Ectopy: Ectopy: none QRS: QRS axis: Normal QRS intervals: Normal ST segments: ST segments: Normal T waves: T waves: normal * Urinalysis screen and microscopy, with reflex to culture (02/19/2019 7:03 PM CDT) Specimen site Clean catch [facility] Color, UA Janina [facility] Appearance, UA Clear [facility] Specific >1.060 (H) 1.001 - 1.035 [facility] gravity, UA [facility] pH, UA 6.0 5.0 - 8.5 [facility] Protein, UA Negative Negative [facility] Glucose, UA Negative Negative [facility] Ketones, UA Negative Negative [facility] Bilirubin, UA Negative Negative [facility] Blood, UA Negative Negative [facility] Nitrite, UA Negative Negative [facility] Urobilinogen, 2.0 (A) <2.0 [facility] Leukocyte Negative Negative [facility] esterase, UA [facility] Epithelial Many Few /HPF [facility]ANK cells, [facility] WBC, UA 0-5 0 - 1 /HPF [facility] RBC, UA 0-5 0 - 5 /HPF [facility] Bacteria, UA Few None seen [facility] Yeast, UA None seen [facility] Yeast with None seen [facility] pseudohyphae, [facility] Specimen Urine Performing Organization Address City/[facility] Ph one Number [facility] DEPARTMENT OF [address] [place] [address] [place] [address] 58 PATHOLOGY AND GENOMIC MEDICINE [address] * Urine culture (02/19/2019 7:03 PM CDT) Urine culture SEE COMMENTComment: Y[facility]ANK Bacteriuria screen negative. [facility] Specimen Urine Performing Organization Address City/[facility] Ph one Number [facility] DEPARTMENT OF [address] [place] [address] [place], [place] [address] PATHOLOGY AND GENOMIC MEDICINE [address] * US Gallbladder (02/19/2019 6:37 PM CDT) Specimen Narrative Performed At EXAMINATION: US GALLBLADDER HM [facility] CLINICAL HISTORY: 44 years Male upper a bdominal pain COMPARISON: None. FINDINGS: Gallbladder: Minimal intermediate echoe s within the gallbladder likely reflects sludge. No calculi. The gallbladder wal l is not thickened and there is no pericholecystic fluid. CBD: 5 mm, within normal limits. Liver: The liver is diffusely increased in echogenicity. Portal vein: The portal vein demonstrat es normal hepatopetal flow. The portal vein measures 1.1 cm. IMPRESSION: 1.Gallbladder sludge. No sonographic ev idence of cholelithiasis or cholecystitis. 2.Hepatic steatosis. [id number] Procedure Note Hm Interface, Radiology Results Incoming - 02/19/2019 6:42 PM CDT EXAMINATION: US GALLBLADDER CLINICAL HISTORY: 44 years Male upper abdominal pain COMPARISON: None. FINDINGS: Gallbladder: Minimal intermediate echoes within the gallbladder likely reflects sludge. No calculi. The gallbladder wall is not thickened and there is no pericholecystic fluid. CBD: 5 mm, within normal limits. Liver: The liver is diffusely increased in echogenicity. Portal vein: The portal vein demonstrates normal hepatopetal flow. The portal vein measures 1.1 cm. IMPRESSION: 1.Gallbladder sludge. No sonographic rich dence of cholelithiasis or cholecystitis. 2.Hepatic steatosis. [facility]-[id number] Performing Organization Address City/State[facility] Ph one Number [facility] [address] [facility] [place] [address] * CT Abdomen Pelvis W Contrast (02/19/2019 6:12 PM CDT) Specimen Narrative Performed At EXAMINATION: CT ABDOMEN PELVIS W CONTRAST [facility] CLINICAL HISTORY: generalized abdomin al tenderness COMPARISON: August 13, 2018 TECHNIQUE: Multiple axial CT images of the Abdomen and pelvis were obtained With IV contrast . Sagittal and coron al reconstructions were done. CT imaging was performed with iterative reconstruction technique and/or automated exposure control to reduce ra diation dose. FINDINGS: HEPATOBILIARY: No focal hepatic lesio ns. No biliary ductal dilation.. GALLBLADDER: Normal. SPLEEN: No splenomegaly. PANCREAS: No focal masses or ductal d ilation. ADRENALS: No adrenal nodules. KIDNEYS: Bilateral calyceal kidney st ones measuring up to 4 mm nonobstructing. No hydronephrosis or renal mass. Stable left renal cyst. PERITONEUM/RETROPERITONEUM: No free a ir or fluid. No lymphadenopathy. ABDOMINAL AORTA/IVC: No aneurysm or dis section. GI TRACT: Visualized portions of the bowel demonstrate no distention or wall thickening. There are no signs of appen dicitis. No signs of diverticulitis. PELVIC ORGANS/BLADDER: Unremarkable. BONES AND SOFT TISSUES: No acute abno rmality of the bones. Fat-containing umbilical hernia stable. VISUALIZED LOWER CHEST: No acute abnorm ality. IMPRESSION: No acute abnormality. [id number] Procedure Note Hm Interface, Radiology Results Incoming - 02/19/2019 6:19 PM CDT EXAMINATION: CT ABDOMEN PELVIS W CONTRAST CLINICAL HISTORY: generalized abdominal tenderness COMPARISON: August 13, 2018 TECHNIQUE: Multiple axial CT images of the Abdomen and pelvis were obtained With IV contrast . Sagittal and coronal reconstructions were done. CT imaging was performed with iterative reconstruction technique and/or automated exposure control to reduce radiation dose. FINDINGS: HEPATOBILIARY: No focal hepatic lesions. No biliary ductal dilation.. GALLBLADDER: Normal. SPLEEN: No splenomegaly. PANCREAS: No focal masses or ductal dilation. ADRENALS: No adrenal nodules. KIDNEYS: Bilateral calyceal kidney stones measuring up to 4 mm nonobstructing. No hydronephrosis or renal mass. Stable left renal cyst. PERITONEUM/RETROPERITONEUM: No free air or fluid. No lymphadenopathy. ABDOMINAL AORTA/IVC: No aneurysm or dissection. GI TRACT: Visualized portions of the bowel demonstrate no distention or wall thickening. There are no signs of appendicitis. No signs of diverticulitis. PELVIC ORGANS/BLADDER: Unremarkable. BONES AND SOFT TISSUES: No acute abnormality of the bones. Fat-containing umbilical hernia stable. VISUALIZED LOWER CHEST: No acute abnormality. IMPRESSION: No acute abnormality. [id number] Performing Organization Address City/State/Zipcode Ph one Number [facility] [address] [place] [address] * CT Head Wo Contrast (02/19/2019 6:10 PM CDT) Specimen Narrative Performed At EXAMINATION: CT HEAD WO CONTRAST [facility] CLINICAL HISTORY: syncope COMPARISON: None. TECHNIQUE: Noncontrast head CT performe d using radiation dose reduction techniques. Technical factors are randal luated and adjusted to ensure appropriate moderation of exposure. Automated dos e management technology is applied to adjust radiation exposure while achieving a diagnostic quality im age. FINDINGS: No acute intra or extra-axial hemorrhag e identified. The miller-white matter differentiation is preserved. The basal ganglia, thalami, midbrain, arya and cervicomedullary junction are unremarka ble. No mass, mass effect, or midline shift is seen. Ventricles and sulci are normal in appearance for patient's age. Basal cisterns are patent. Calvarium is intact. The orbital contents are symmetric and normal in appearance. The visualized paranasal sinuses are unremarkable. The mastoid air cells and middle ear cavities are clear. Scalp soft tissues are unremarkable. IMPRESSION: No acute intracranial abnormality ident ified. [id number] Procedure Note Interface, Radiology Results Incoming - 02/19/2019 6:19 PM CDT EXAMINATION: CT HEAD WO CONTRAST CLINICAL HISTORY: syncope COMPARISON: None. TECHNIQUE: Noncontrast head CT performed using radiation dose reduction techniques. Technical factors are evaluated and adjusted to ensure appropriate moderation of exposure. Automated dose management technology is applied to adjust radiation exposure while achieving a diagnostic quality image. FINDINGS: No acute intra or extra-axial hemorrhage identified. The miller-white matter differentiation is preserved. The basal ganglia, thalami, midbrain, arya and cervicomedullary junction are unremarkable. No mass, mass effect, or midline shift is seen. Ventricles and sulci are normal in appearance for patient's age. Basal cisterns are patent. Calvarium is intact. The orbital contents are symmetric and normal in appearance. The visualized paranasal sinuses are unremarkable. The mastoid air cells and middle ear cavities are clear. Scalp soft tissues are unremarkable. IMPRESSION: No acute intracranial abnormality identified. [id number] Performing Organization Address City/State/Zipcode Ph one Number [facility] [address] [place] [address] * XR Chest 2 Vw (02/19/2019 4:46 PM CDT) Specimen Narrative Performed At EXAMINATION: XR CHEST 2 VW HM [facility] CLINICAL HISTORY: dizzy COMPARISON: 08/12/2018 IMPRESSION: 1.Lungs are mildly hypoinflated but oth erwise clear. 2.Mediastinal contours and cardiac silh ouette are unremarkable. 3.No acute osseous abnormality. [id number] Procedure Note Interface, Radiology Results Incoming - 02/19/2019 4:51 PM CDT EXAMINATION: XR CHEST 2 VW CLINICAL HISTORY: dizzy COMPARISON: 08/12/2018 IMPRESSION: 1.Lungs are mildly hypoinflated but othe rwise clear. 2.Mediastinal contours and cardiac silho uette are unremarkable. 3.No acute osseous abnormality. [id number] Performing Organization Address [facility] one Number [facility] [address] [place] [address] * Partial thromboplastin time, activated (02/19/2019 4:20 PM CDT) PTT 25.8 23.0 - 36.0 sec [facility] Comment: MANDAEN CLEAR PTT therapeutic range for [facility] unfractionated heparin is 61.0-112.0 seconds which corresponds to Anti-Xa 0.3-0.7 U/ml. Specimen Blood Performing Organization Address [facility] one Number [facility] DEPARTMENT [address] [place] [address] PATHOLOGY AND [facility] MEDICINE [address] * Prothrombin time with INR (02/19/2019 4:20 PM CDT) Pathologist [facility] Department Prothrombin 12.1 11.5 - 14.5 sec [facility] INR 0.9 YAPHANK Comment: [facility] The International Normalized [facility] Ratio (INR) is a therapeutic monitoring tool for patients who are stable on oral anticoagulant therapy. An INR of 2.0-3.0 is suggested for deep vein thrombosis/pulmonary embolism. Specimen Blood Performing Organization Address [facility] one Number [facility] DEPARTMENT [address] [place] [address] 58 PATHOLOGY AND GENOMIC MEDICINE [facility]ANK MANDAEN [address] * B natriuretic peptide (02/19/2019 4:20 PM CDT) Pathologist [facility] BNP 18 0 - 100 pg/mL [facility] Specimen Blood Performing Organization Address [facility] one Number [facility] DEPARTMENT [address] [place] [address] PATHOLOGY AND [facility] MEDICINE [address] * Magnesium level (02/19/2019 4:20 PM CDT) Pathologist [facility] Magnesium 2.1 1.6 - 2.6 mg/dL [facility] Specimen Plasma specimen Performing Organization Address City/[facility] Ph one Number [facility] [place] [address] [address] [place], [place] [address] PATHOLOGY AND GENOMIC MEDICINE [facility] [address] * Lipase level (02/19/2019 4:20 PM CDT) Lipase 25 13 - 60 U/L [facility] Specimen Plasma specimen Performing Organization Address City/[facility] Ph one Number [facility] [place] [address] [address] [place], [place] [address] PATHOLOGY AND GENOMIC MEDICINE [facility] [address] [address] * Creatine kinase, total (CPK) (02/19/2019 4:20 PM CDT) Creatine kinase 129 39 - 308 U/L [facility] Specimen Plasma specimen Performing Organization Address [facility] one Number [facility] [place] [address] [address] [place] [address] 58 PATHOLOGY AND GENOMIC MEDICINE [facility] [address] after 10/30/2018 Insurance Type Payer Benefit Subscriber ID Effective Phone Address Plan / Dates Group PPO AETNA AETNA xxxxxxxxxx [id number] [employer] [facility] PPO Advance Directives For more information, please contact: [phone] Patient Hack Driver Explanation Type Date Recorded Advance Directives, 06/07/2018 9:37 PM Living Will and Medical Power of Research Staff Member Date Inactivated Comments Code Status Date Activated 08/14/2018 10:19 PM Full Code 08/13/2018 1:52 AM Code Status decision reached by: Patient
[2019-10-31 09:05] VITALS: BP 144/88
--- NOTE | 2019-11-02 13:33 | Operative Report ---
DATE OF PROCEDURE: 10/31/2019 SURGEON: Donta Lane MD PREOPERATIVE DIAGNOSIS: Left ureteral calculus. POSTOPERATIVE DIAGNOSIS: Left ureteral calculus. PROCEDURES: 1. Staged shock lithotripsy, left side. 2. Supervision of fluoroscopy. ANESTHESIA: General. ESTIMATED BLOOD LOSS: Minimal. COMPLICATIONS: None. INDICATIONS: Mr. Granados is a very pleasant 44-year-old male with a history of renal colic and failure to pass a 6 x 6 mm proximal ureteral calculus. The patient and I had a long discussion about alternatives, risks and benefits. He explicitly voiced. He did not want a stent unless it is absolutely 100% needed. He wishes the options, alternatives, risks, and benefits and elected to proceed. PROCEDURE IN DETAIL: After informed consent was obtained, the patient was taken to the operative suite, place supine on the operating table, underwent general anesthesia by Anesthesia Service. Stone was localized in the X, Y, and Z planes. Treatment was performed per the treatment report. The patient tolerated well. There was good fragmentation of stones seen. He was awakened from anesthesia and transported to the recovery room in excellent condition. Supervision of fluoroscopy: I was present for the entire procedure and supervised fluoroscopy. There was no radiologist present. Dosages per treatment report. Donta Lane MD ES/MODL /[id number]
== END | disposition home or self-care (01) ==
LOC: OR 05:32
PROVIDERS: ATTEND Urology
DX: N20.1 Calculus of ureter (principal); N13.30 Unspecified hydronephrosis; N20.0 Calculus of kidney; N39.0 Urinary tract infection, site not specified; R35.1 Nocturia; E11.9 Type 2 diabetes mellitus without complications; I10 Essential (primary) hypertension; E66.01 Morbid (severe) obesity due to excess calories; Z01.810 Encounter for preprocedural cardiovascular examination; Z01.812 Encounter for preprocedural laboratory examination; Z01.818 Encounter for other preprocedural examination; Z11.59 Encounter for screening for other viral diseases; Z79.84 Long term (current) use of oral hypoglycemic drugs; Z68.44 Body mass index [BMI] 60.0-69.9, adult
CPT/HCPCS: 36415 ×2; 50590; 74018; 80048; 82948; 87635; 93005; J0696; J1100; J2001; J2250; J2405; J2704; J3010

== ENCOUNTER → 2022-12-01 | Day surgery (SDC) | payer BC, OTHER ==
[2022-11-30 11:40] LABS: ANION GAP 15.6 mmol/L (8-16); CALCIUM 9.5 mg/dL (8.4-10.2); CREATININE, SERUM 1.22 mg/dL (0.72-1.25); POTASSIUM 4.6 mmol/L (3.5-5.1)
[~2022-12-01] MED LIST changes: +ACETAMINOPHEN 1000 MG/100 ML 100 ML IV ONE; +ARIMIDEX1 MG PO; +CEFTRIAXONE 1 GM VIAL ONE; -CEFTRIAXONE SOD 1 GM/NS 50 ML 50 ML IV ONE; +CRESTOR10 MG PO; +DEXAMETHASONE SOD PHOS INJ 4 MG/ML SDV ONE; -DEXAMETHASONE SOD PHOS INJ 4 MG/ML VIAL ONE; -IOPAMIDOL 300MG/ML 50ML INFUS..BTL IV ONE; +LACTATED RINGER'S 1,000 ML ONE; -MIDAZOLAM HCL 2 MG/2 ML VIAL ONE; +POVIDONE IODINE 0.05% 0.05 % ML PO ONE; +VIT D PO
[2022-12-01 07:39] VITALS: TEMP 98.9
[2022-12-01 08:25] VITALS: BP 123/87; PULSE 62; RESP 17; O2SAT 95
== END | disposition home or self-care (01) ==
LOC: OR 07:09
PROVIDERS: ATTEND Urology
DX: N20.0 Calculus of kidney (principal); N13.30 Unspecified hydronephrosis; N39.0 Urinary tract infection, site not specified; N40.1 Benign prostatic hyperplasia with lower urinary tract symptoms; R35.1 Nocturia; N50.0 Atrophy of testis; E66.01 Morbid (severe) obesity due to excess calories; G47.33 Obstructive sleep apnea (adult) (pediatric); I10 Essential (primary) hypertension; Z01.810 Encounter for preprocedural cardiovascular examination; Z01.812 Encounter for preprocedural laboratory examination; Z01.818 Encounter for other preprocedural examination; Z79.84 Long term (current) use of oral hypoglycemic drugs; Z79.899 Other long term (current) drug therapy; Z68.42 Body mass index [BMI] 45.0-49.9, adult
CPT/HCPCS: 36415 ×2; 50590; 74018; 80048; 82948; 93005; J0131; J0696; J1100; J2001; J2405; J2704; J3010; J7121